=== PATIENT | female | born 1980 | race Caucasian/White ===

== ENCOUNTER → 2016-06-19 | Outpatient (REF) | payer BC ==
[2016-06-19 11:37] LABS: MEAN CORPUSCULAR HEMOGLOBIN 27.6 pg (27.0-33.0); MEAN CORPUSCULAR HGB CONC 32.7 g/dl (32.0-36.5); MEAN CORPUSCULAR VOLUME 84.6 fl (80.0-96.0); RED CELL DISTRIBUTION WIDTH 12.9 % (11.5-14.5); WHITE BLOOD COUNT 5.3 K/mm3 (4.0-10.0)
[2016-06-19 11:40] LABS: CONTROL LINE MONO INT CTR LINE PRESENT
[2016-06-19 12:06] LABS: ALBUMIN 3.7 GM/DL (3.2-5.2); ALT/SGPT 16 U/L (12-78); ANION GAP 6 MEQ/L (8-16); AST/SGOT 9 U/L (15-37); BLOOD UREA NITROGEN 12 MG/DL (7-18); CALCIUM LEVEL 8.5 MG/DL (8.5-10.1); CARBON DIOXIDE LEVEL 27 MEQ/L (21-32); CHLORIDE LEVEL 109 MEQ/L (98-107); CHOLESTEROL LEVEL 176 MG/DL (<200); GLUCOSE, FASTING 93 MG/DL (70-105); POTASSIUM SERUM 4.2 MEQ/L (3.5-5.1); SODIUM LEVEL 142 MEQ/L (136-145); TRIGLYCERIDES LEVEL 74 MG/DL (<150)
[2016-06-19 12:14] LABS: ALBUMIN/GLOBULIN RATIO 1.19 (1.00-1.93); ALKALINE PHOSPHATASE 60 U/L (45-117); BILIRUBIN,TOTAL 0.6 MG/DL (0.2-1.0); CREATININE FOR GFR 0.82 MG/DL (0.55-1.02); FREE T4 1.01 NG/DL (0.76-1.46); GLOMERULAR FILTRATION RATE > 60.0 (>60); TOTAL PROTEIN 6.8 GM/DL (6.4-8.2)
== END ==
LOC: M LABDRAW1 11:08
PROVIDERS: ATTEND Nurse Practitioner Family
DX: R53.83 Other fatigue (principal)

== ENCOUNTER → 2016-10-09 | Outpatient (REF) | payer BC ==
[2016-10-10 07:46] LABS: CONTROL LINE MONO INT CTR LINE PRESENT
== END ==
LOC: M LABDRAW1 15:41
PROVIDERS: ATTEND Nurse Practitioner Family
DX: R53.83 Other fatigue (principal)

== ENCOUNTER → 2017-08-23 | Outpatient (CLI) | payer BC ==
[2017-08-23 08:31] LABS: HEMATOCRIT 38.4 % (36.0-47.0); HEMOGLOBIN 12.9 g/dl (12.0-15.5); MEAN CORPUSCULAR HEMOGLOBIN 27.4 pg (27.0-33.0); MEAN CORPUSCULAR HGB CONC 33.6 g/dl (32.0-36.5); MEAN CORPUSCULAR VOLUME 81.5 fl (80.0-96.0); PLATELET COUNT, AUTOMATED 238 10^3/uL (150-450); RED BLOOD COUNT 4.71 10^6/uL (4.00-5.40); RED CELL DISTRIBUTION WIDTH 13.5 % (11.5-14.5); WHITE BLOOD COUNT 4.8 10^3/uL (4.0-10.0)
[2017-08-23 08:47] LABS: ESTIMATED AVERAGE GLUCOSE 111 MG/DL (60-110); HEMOGLOBIN A1c 5.5 %
[2017-08-23 09:15] LABS: ALBUMIN 3.8 GM/DL (3.2-5.2); ALKALINE PHOSPHATASE 72 U/L (45-117); ALT/SGPT 18 U/L (12-78); ANION GAP 9 MEQ/L (8-16); AST/SGOT 16 U/L (7-37); BILIRUBIN,TOTAL 0.6 MG/DL (0.2-1.0); BLOOD UREA NITROGEN 15 MG/DL (7-18); CALCIUM LEVEL 8.4 MG/DL (8.5-10.1); CARBON DIOXIDE LEVEL 23 MEQ/L (21-32); CHLORIDE LEVEL 111 MEQ/L (98-107); CHOLESTEROL LEVEL 171 MG/DL (<200); CREATININE FOR GFR 0.92 MG/DL (0.55-1.30); GLOMERULAR FILTRATION RATE > 60.0 (>60); GLUCOSE, FASTING 86 MG/DL (70-100); HDL CHOLESTEROL 66 MG/DL (>40); IRON (FE) 68 UG/DL (50-170); LDL CHOLESTEROL 91.8 MG/DL (<100); NON-HDL-C 105 MG/DL; PERCENT SATURATION 16.4 % (13.2-45.0); POTASSIUM SERUM 4.1 MEQ/L (3.5-5.1); SODIUM LEVEL 143 MEQ/L (136-145); THYROID STIMULATING HORMONE 0.996 uIU/ML (0.358-3.740); THYROXINE (T4) 9.9 UG/DL (4.5-12.0); TOTAL IRON BINDING CAPACITY 415 UG/DL (250-450); TOTAL PROTEIN 7.6 GM/DL (6.4-8.2); TRIGLYCERIDES LEVEL 66 MG/DL (<150)
[2017-08-23 10:30] LABS: TOTAL 25(OH) VITAMIN D 28.1 NG/ML (30.0-100.0)
[2017-08-23 10:31] LABS: TOTAL T3 94.3 NG/DL (60.0-181.0); VITAMIN B12 LEVEL 628 PG/ML (247-911)
== END ==
LOC: M LAB 07:50
DX: D64.9 Anemia, unspecified (principal); R53.83 Other fatigue; E03.9 Hypothyroidism, unspecified
CPT/HCPCS: 83550

== ENCOUNTER → 2017-12-30 | Outpatient (REF) | payer BC ==
[2017-12-30 10:17] LABS: APPEARANCE, URINE CLEAR (CLEAR); BACTERIA, URINE AUTO NEGATIVE (NEGATIVE); BILIRUBIN, URINE AUTO NEGATIVE (NEGATIVE); BLOOD, URINE BLOOD NEGATIVE (NEGATIVE); COLOR, URINE COLORLESS (YELLOW); GLUCOSE, URINE (UA) AUTO NEGATIVE (NEGATIVE); KETONE, URINE AUTO NEGATIVE (NEGATIVE); LEUKOCYTE ESTERASE, URINE AUTO NEGATIVE (NEGATIVE); NITRITE, URINE AUTO NEGATIVE (NEGATIVE); PROTEIN, URINE AUTO NEGATIVE (NEGATIVE); RBC, URINE AUTO 0 /HPF (0-3); SPECIFIC GRAVITY URINE AUTO 1.001 (1.002-1.035); SQUAMOUS EPITHELIAL CELL UR AU 0 /HPF (0-6); UROBILINOGEN, URINE AUTO 0.2 mg/dL (0.0-2.0); WBC, URINE AUTO 0 /HPF (0-3)
== END ==
LOC: M LAB REF 10:00
DX: R30.0 Dysuria (principal)
CPT/HCPCS: 81001

== ENCOUNTER → 2019-05-05 | Outpatient (CLI) | payer BC ==
[~2019-05-05] MED LIST: AMOX875T2 PO; AUGM875T28 PO; DIFL150T PO; OSEL75CA PO
[2019-05-05 10:29] LABS: HEMOGLOBIN 13.4 g/dl (12.0-15.5); MEAN CORPUSCULAR HEMOGLOBIN 28.5 pg (27.0-33.0); MEAN CORPUSCULAR HGB CONC 33.5 g/dl (32.0-36.5); MEAN CORPUSCULAR VOLUME 85.1 fl (80.0-96.0); PLATELET COUNT, AUTOMATED 245 10^3/uL (150-450); WHITE BLOOD COUNT 6.1 10^3/uL (4.0-10.0)
[2019-05-05 10:56] LABS: ALBUMIN 4.2 GM/DL (3.2-5.2); ALT/SGPT 23 U/L (12-78); BILIRUBIN,TOTAL 0.7 MG/DL (0.2-1.0); BLOOD UREA NITROGEN 15 MG/DL (7-18); CALCIUM LEVEL 8.8 MG/DL (8.5-10.1); CARBON DIOXIDE LEVEL 26 MEQ/L (21-32); CHLORIDE LEVEL 108 MEQ/L (98-107); CHOLESTEROL LEVEL 205 MG/DL (<200); CREATININE FOR GFR 0.91 MG/DL (0.55-1.30); GLOMERULAR FILTRATION RATE > 60.0 (>60); GLUCOSE, FASTING 79 MG/DL (70-100); HDL CHOLESTEROL 82 MG/DL (>40); LDL CHOLESTEROL 113 MG/DL (<100); NON-HDL-C 123 MG/DL; RHEUMATOID FACTOR QUANT < 10.0 IU/ML (<15.0); SODIUM LEVEL 140 MEQ/L (136-145); THYROID STIMULATING HORMONE 0.986 uIU/ML (0.358-3.740); TOTAL PROTEIN 7.9 GM/DL (6.4-8.2); TRIGLYCERIDES LEVEL 50 MG/DL (<150); URIC ACID 3.9 MG/DL (2.6-6.0)
[2019-05-05 11:18] LABS: HEMOGLOBIN A1c 5.8 %
[2019-05-05 11:20] LABS: ERYTHROCYTE SEDIMENTATION RATE 13 mm/hr (0-20)
[2019-05-05 11:45] LABS: TOTAL 25(OH) VITAMIN D 47.3 NG/ML (30.0-100.0)
[2019-05-07 00:07] LABS: Lyme Disease IgG/IgM Antibodie <0.91 ISR (0.00-0.90); Lyme Disease IgM Ab Quantitati <0.80 index (0.00-0.79)
== END ==
LOC: M LAB 09:13
PROVIDERS: ATTEND Family Medicine
DX: R53.83 Other fatigue (principal); D64.9 Anemia, unspecified; E03.9 Hypothyroidism, unspecified; M06.9 Rheumatoid arthritis, unspecified

== ENCOUNTER → 2020-03-09 | Outpatient (CLI) | payer SELFPAY | LOC: M LABSMTC 11:46 | PROVIDERS: ATTEND Pediatrics | DX: Z20.822 Contact with and (suspected) exposure to COVID-19 (principal) ==

== ENCOUNTER 2020-12-30 23:20 | Emergency (ER) | payer BC, SELFPAY ==
[~2020-12-30] VITALS: Ht 182.9 cm; Wt 72.7 kg
[2020-12-30] MEDS ORDERED: KLON0.5T PO (23:27)
--- OUTSIDE RECORDS SUMMARY | 2020-12-30 23:28 | CCD ---
Author Author [facility] Organization [facility] Address Unknown Phone Unavailable Care Team Providers Care Boat Assembler Name Role Phone Mestad, E Anna Marie Unavailable Unavailable Mestad, E Anna Marie Unavailable Unavailable Mestad, E Anna Marie Unavailable Unavailable Mestad, E Anna Marie Unavailable Unavailable Mestad, E Anna Marie Unavailable Unavailable Mestad, E Anna Marie Unavailable Unavailable Mestad, E Anna Marie Unavailable Unavailable Mestad, E Anna Marie Unavailable Unavailable Mestad, E Anna Marie Unavailable Unavailable Mestad, E Anna Marie Unavailable Unavailable Mestad, E Anna Marie Unavailable Unavailable Mestad, E Anna Marie Unavailable Unavailable Mestad, E Anna Marie Unavailable Unavailable Mestad, E Anna Marie Unavailable Unavailable Mestad, E Anna Marie Unavailable Unavailable Mestad, E Anna Marie Unavailable Unavailable Mestad, E Anna Marie Unavailable Unavailable Mestad, E Anna Marie Unavailable Unavailable Mestad, E Anna Marie Unavailable Unavailable Mestad, E Anna Marie Unavailable Unavailable Mestad, E Anna Marie Unavailable Unavailable Mestad, E Anna Marie Unavailable Unavailable Mestad, E Anna Marie Unavailable Unavailable Mestad, E Anna Marie Unavailable Unavailable Mestad, E Anna Marie Unavailable Unavailable Mestad, E Anna Marie Unavailable Unavailable Mestad, E Anna Marie Unavailable Unavailable Mestad, E Anna Marie Unavailable Unavailable OSIRIS FRAZIER PA Unavailable Unavailable KARINOSIRIS QUINTEROS PA Unavailable Unavailable KARINOSIRIS QUINTEROS PA Unavailable Unavailable KARINOSIRIS QUINTEROS PA Unavailable Unavailable OSIRIS FRAZIER PA Unavailable Unavailable KARINOSIRIS QUINTEROS PA Unavailable Unavailable KARINOSIRIS QUINTEROS PA Unavailable Unavailable KARINOSIRIS QUINTEROS PA Unavailable Unavailable KARINOSIRIS QUINTEROS PA Unavailable Unavailable KARIN, OSIRIS PA Unavailable Unavailable KARIN, OSIRIS PA Unavailable Unavailable KARIN, OSIRIS PA Unavailable Unavailable KARIN, OSIRIS PA Unavailable Unavailable KARIN, OSIRIS PA Unavailable Unavailable KARIN, OSIRIS PA Unavailable Unavailable KARIN, OSIRIS PA Unavailable Unavailable KARIN, OSIRIS PA Unavailable Unavailable KARIN, OSIRIS PA Unavailable Unavailable KARIN, OSIRIS PA Unavailable Unavailable KARIN, OSIRIS PA Unavailable Unavailable KARIN, OSIRIS PA Unavailable Unavailable KARIN, OSIRIS PA Unavailable Unavailable KARIN, OSIRIS PA Unavailable Unavailable KARIN, OSIRIS PA Unavailable Unavailable KARIN, OSIRIS PA Unavailable Unavailable KARIN, OSIRIS PA Unavailable Unavailable KARIN, OSIRIS PA Unavailable Unavailable KARIN, OSIRIS PA Unavailable Unavailable KARIN, OSIRIS PA Unavailable Unavailable KARIN, OSIRIS PA Unavailable Unavailable KARIN, OSIRIS PA Unavailable Unavailable KARIN, OSIRIS PA Unavailable Unavailable KARIN, OSIRIS PA Unavailable Unavailable KARIN, OSIRIS PA Unavailable Unavailable KARIN, OSIRIS PA Unavailable Unavailable KARIN, OSIRIS PA Unavailable Unavailable Re-disclosure Warning The records that you are about to access may contain information from federally-assisted alcohol or drug abuse programs. If such information is present, then the following federally mandated warning applies: This information has been disclosed to you from records protected by federal confidentiality rules (42 CFR part 2). The federal rules prohibit you from making any further disclosure of this information unless further disclosure is expressly permitted by the written consent of the person to whom it pertains or as otherwise permitted by 42 CFR part 2. A general authorization for the release of medical or other information is NOT sufficient for this purpose. The Federal rules restrict any use of the information to criminally investigate or prosecute any alcohol or drug abuse patient.The records that you are about to access may contain highly sensitive health information, the redisclosure of which is protected by Article 27-F of the [facility] Public Health law. If you continue you may have access to information: Regarding HIV / AIDS; Provided by facilities licensed or operated by the [facility] Office of Mental Health; or Provided by the [facility] Office for People With Developmental Disabilities. If such information is present, then the following [facility] mandated warning applies: This information has been disclosed to you from confidential records which are protected by state law. State law prohibits you from making any further disclosure of this information without the specific written consent of the person to whom it pertains, or as otherwise permitted by law. Any unauthorized further disclosure in violation of state law may result in a fine or chcf sentence or both. A general authorization for the release of medical or other information is NOT sufficient authorization for further disc losure. Allergies and Adverse Reactions Type Description Substance Reaction Status Data Source(s ) Propensity to adverse reactions NO KNOWN ALLERGIES NO KNOWN ALLERGIES [facility] Encounters Encounter Providers Location Date Indications Data Source(s ) Outpatient Attender: Anna Marie CarpenterdAdmitter: Anna Marie Liebermananne-marie [id number] 07/26/2020 12:00:00 AM EDT - 07/26/2020 12:16:26 PM EDT Encounter for gynecological examination (general) (routine) without abnormal findings [facility] Encounter for gynecological examination (general) (routine) without abnormal findings Outpatient Attender: Anna Marie Gayle 07/19/2020 12:00:00 AM E DT [facility] Outpatient Attender: OSIRIS gray 03/08/2020 01:30:00 PM EST [facility] ([facility], [facility]) Immunizations Vaccine Date Status Description Data Source(s) COVID-19 VACCINE Moderna 11/04/2020 12:00:00 AM EDT completed [facility] Vaccine Series Complete: YESThis Data wa s Submitted to [facility] Via [employer]. COVID-19 VACCINE Moderna 10/06/2020 12:00:00 AM EDT completed [facility] Vaccine Series Complete: NOThis Data was Submitted to [facility] Via [employer]. INFLUENZA VIRUS VACCINE QUADRIVAL [id number](6 MOS AND UP)/PF 12/18/2019 12:00:00 AM EDT completed [facility] Medications Medication Brand Name Start Date Product Form Dose Route Admi nistrative Instructions Pharmacy Instructions Status Indications Reaction Description Data Source(s) 1 mg 11/28/2020 12:00:00 AM EDT tablet 90 TAKE ONE TABLET BY MOUTH THREE TIMES A DAY MAXIMUM DAILY DOSE = 3 TAKE ONE TABLET BY MOUTH THREE TIMES A D AY MAXIMUM DAILY DOSE = 3 SOLD: 12/02/2020 [facility] 25 mg 09/30/2020 12:00:00 AM EDT suppository 24 INSERT ONE SUPPOSITORY RECTALLY TWICE A DAY NEEDED INSERT ONE SUPPOSITORY RECTALLY TWICE A DAY NEEDED SOLD: 09/30/2020 [facility] 1 mg 09/30/2020 12:00:00 AM EDT tablet 90 TAKE ONE TABLET BY MOUTH THREE TIMES A DAY MAXIMUM DAILY DOSE = 3 TAKE ONE TABLET BY MOUTH THREE TIMES A D AY MAXIMUM DAILY DOSE = 3 SOLD: 09/30/2020 [facility] 1 mg 08/16/2020 12:00:00 AM EDT tablet 90 TAKE ONE TABLET BY MOUTH THREE TIMES A DAY MAXIMUM DAILY DOSE = 3 TAKE ONE TABLET BY MOUTH THREE TIMES A D AY MAXIMUM DAILY DOSE = 3 SOLD: 08/25/2020 [facility] 1 mg 07/05/2020 12:00:00 AM EDT tablet 90 TAKE ONE TABLET BY MOUTH THREE TIMES A DAY MAXIMUM DAILY DOSE = 3 TAKE ONE TABLET BY MOUTH THREE TIMES A D AY MAXIMUM DAILY DOSE = 3 SOLD: 07/06/2020 [facility] 150 mg 05/18/2020 12:00:00 AM EDT tablet 1 TAKE 1 TABLET BY MOUTH ONCE TAKE 1 TABLET BY MOUTH ONCE SOLD: 05/18/2020 [facility] 25 mg 05/17/2020 12:00:00 AM EDT suppository 12 INSERT ONE SUPPOSITORY RECTALLY TWICE A DAY NEEDED INSERT ONE SUPPOSITORY RECTALLY TWICE A DAY NEEDED SOLD: 05/18/2020 [facility] 150 mg 05/16/2020 12:00:00 AM EDT tablet 1 TAKE 1 TABLET BY MOUTH ONCE TAKE 1 TABLET BY MOUTH ONCE SOLD: 05/16/2020 [facility] Sulfamethoxazole 800 MG / Trimethoprim 160 MG Oral Tab let 800-160 mg SULFAMETHOXAZOLE/TRIMETHOPRIM 05/15/2020 12:00:00 AM EST tablet 14 TAKE ONE TABLET BY MOUTH TWICE A DAY FOR 7 DAYS TAKE ONE TABLET BY MOUTH TWICE A DAY FOR 7 DAYS SOLD: 05/15/2020 [facility] 0.4 % (w/w) 05/14/2020 12:00:00 AM EST ointment 30 APPLY TWO TIMES A DAY DIRECTED APPLY TWO TIMES A DAY DIRECTED SOLD: 05/14/2020 [facility] 100,000-0.1 unit/g-% 05/10/2020 12:00:00 AM EST cream 30 APPLY TO AFFECTED AREA(S) TWO TIMES A DAY SPARINGLY APPLY TO AFFECTED AREA(S) TWO TIMES A DA Y SPARINGLY SOLD: 05/10/2020 [facility] 0.5 mg 05/03/2020 12:00:00 AM EST tablet 90 TAKE ONE TABLET BY MOUTH THREE TIMES A DAY MAXIMUM DAILY DOSE = 3 TAKE ONE TABLET BY MOUTH THREE TIMES A D AY MAXIMUM DAILY DOSE = 3 SOLD: 05/08/2020 [facility] 150 mg 04/01/2020 12:00:00 AM EST tablet 2 TAKE ONE TABLET BY MOUTH TODAY MAY REPEAT IN 3 DAYS IF NEEDED TAKE ONE TABLET BY MOUTH TODAY MAY REPEA T IN 3 DAYS IF NEEDED SOLD: 04/01/2020 [facility] 250 mg 04/01/2020 12:00:00 AM EST tablet 6 TAKE TWO TABLETS BY MOUTH AT ONCE ON THE FIRST DAY THEN TAKE ONE DAILY THEREAFTER TAKE TWO TABLETS BY MOUTH AT ONCE ON THE FIRST DAY THEN TAKE ONE DAILY THEREAFTER SOLD: 04/01/2020 [facility] benzonatate 100 MG Oral Capsule BENZONATATE 03/29/2020 12:00:00 AM EST capsule 45 TAKE ONE CAPSULE BY MOUTH EVERY 8 HOURS NEEDED FOR COUGH TAKE ONE CAPSULE BY MOUTH EVERY 8 HOURS NEEDED FOR COUGH SOLD: 03/29/2020 [facility] 0.5 mg 03/22/2020 12:00:00 AM EST tablet 90 TAKE ONE TABLET BY MOUTH THREE TIMES A DAY MAXIMUM DAILY DOSE = 3 TAKE ONE TABLET BY MOUTH THREE TIMES A D AY MAXIMUM DAILY DOSE = 3 SOLD: 03/22/2020 [facility] 90 mcg/actuation 03/19/2020 12:00:00 AM EST HFA aerosol inha ler 18 INHALE 1- 2 PUFFS BY MOUTH EVERY 4 HOURS NEEDED INHALE 1-2 PUFFS BY MOUTH EVERY 4 HOURS NEEDED SOLD: 03/19/2020 [facility] 10 mg 03/19/2020 12:00:00 AM EST tablet 30 TAKE DIRECTED TAKE DIRECTED SOLD: 03/19/2020 [facility] 250 mg 03/19/2020 12:00:00 AM EST tablet 6 TAKE TWO TABLETS BY MOUTH AT ONCE ON THE FIRST DAY THEN TAKE ONE DAILY THEREAFTER TAKE TWO TABLETS BY MOUTH AT ONCE ON THE FIRST DAY THEN TAKE ONE DAILY THEREAFTER SOLD: 03/19/2020 [facility] 0.5 mg 01/26/2020 12:00:00 AM EST tablet 90 TAKE ONE TABLET BY MOUTH THREE TIMES A DAY MAXIMUM DAILY DOSE = 3 TAKE ONE TABLET BY MOUTH THREE TIMES A D AY MAXIMUM DAILY DOSE = 3 SOLD: 01/27/2020 [facility] 150 mg 01/20/2020 12:00:00 AM EST tablet 1 TAKE ONE TABLET BY MOUTH TIMES 1 DOSE TAKE ONE TABLET BY MOUTH TIMES 1 DOSE SOLD: 01/20/2020 [facility] Sulfamethoxazole 800 MG / Trimethoprim 160 MG Oral Tab let 800-160 mg SULFAMETHOXAZOLE/TRIMETHOPRIM 01/20/2020 12:00:00 AM EST tablet 14 TAKE ONE TABLET BY MOUTH TWICE A DAY FOR 7 DAYS TAKE ONE TABLET BY MOUTH TWICE A DAY FOR 7 DAYS SOLD: 01/20/2020 [facility] 0.5 mg 12/16/2019 12:00:00 AM EDT tablet 90 TAKE ONE TABLET BY MOUTH THREE TIMES A DAY MAXIMUM DAILY DOSE = 3 TABLETS TAKE ONE TABLET BY MOUTH THREE TIMES A DAY MAXIMUM DAILY DOSE = 3 TABLETS SOLD: 12/17/2019 [facility] 150 mg 10/19/2019 12:00:00 AM EDT tablet 1 TAKE ONE TABLET BY MOUTH FOR A SINGLE DOSE TAKE ONE TABLET BY MOUTH FOR A SINGLE DOSE SOLD: 09/26/2020 [facility] Sertraline 50 MG Oral Tablet sertraline (ZOLOFT) 50 MG tablet sertraline (ZOLOFT) 50 MG tablet 12/07/2015 12:00:00 AM EDT [facility] Alprazolam 0.5 MG Oral Tablet alprazolam (XANAX) 0.5 M G tablet alprazolam (XANAX) 0.5 MG tablet 11/04/2015 12:00:00 AM EDT [facility] Insurance Providers Payer name Policy type / Coverage type Policy ID Covered democrat ID Covered democrat's relationship to kwok Policy Kwok Plan Information EXCELLUS C [id number] Spouse [id number] BLUE CROSS O [id number] SP [id number] EXCELLUS C [id number] Spouse [id number] EXCELLUS C [id number] Spouse [id number] EXCELLUS C [id number] Spouse [id number] EXCELLUS H [id number] [id number] Blue Cross Blue Shield P [id number] SELF [id number] Blue Cross Blue Shield P [id number] SELF [id number] Blue Cross Blue Shield P [id number] SPOUSE [id number] EXCELLUS BCBS B [id number] P [id number] [place]/307 [id number] UNITED HEALTHCARE O [id number] P [id number] [place]/307 [id number] SELF PAY UNAVAILABLE SP UNAVAILA BLE [place]/307 [id number] BLUE CROSS O [id number] SP [id number] BLUE CROSS O [id number] SP [id number] [place]/307 [id number] [facility] CHOICE PLUS O [id number] SELF PAY ONLY [id number] SP [id number] BCBS [place] O [id number] U [id number] [place]/307 [id number] SP [id number] [facility] [id number] Problems, Conditions, and Diagnoses Code Display Name Description Problem Type Effective Dates Data Source(s) N92.6 Irregular menstruation, unspecified Irregular me nstruation, unspecified Diagnosis 07/26/2020 11:34:18 AM [facility] R87.610 Atypical squamous cells of u ndetermined significance on cytologic smear of cervix (ASC-US) Atypical squamous cells of undetermined significance on cytologic smear of cervix (ASC-US) Diagnosis 07/26/2020 11:34:18 AM [facility] Z01.419 Encounter for gynecological examination (general) (routine) without abnormal findings Encounter for gynecological examination (general) (routine) without abnormal findings Diagnosis 07/26/2020 11:34:18 AM [facility] Surgeries/Procedures No Information Results ID Date Data Source [id number] 11/16/2020 12:00:00 AM EDT [facility] Name Value Range Interpretation Code Description Data Dotty rce(s) Supporting Document(s) SARS-CoV2 Rapid Antigen Negative [facility] This lab was ordered by [facility] and reported by [facility]. ID Date Data Source [id number] 07/26/2020 03:58:[address] [facility] Name Value Range Interpretation Code Description Data Dotty rce(s) Supporting Document(s) Progress Note [facility] JIEBYa4mDhHVTfWo10/PSWewRBAaf2RkHGuoEGi0RXgtSTYmY7NaMYS6bI6cNVJ8MFzPHbDeLnZiFPK7 lbm [file] kAA1fhahyu12DovXFXiX6QGbliQHoTd/UgjKnX1DWq9gCjsF31rncU0JfC/set and exhibit designer+V1yAzjtvEWxQRxKrUL [file] Ana Laura+EPk9dxbt1yagyf8XFLxBnoLT2Bagcvn+JejHf0XVQylzpYk5Y3SUudWo2uHtou0w0p+M29lRcHaV [file] AgICAgICAgICAgICAgICAgICAgICAgICAgICAgICAgICAgICAgICAgICAgICAgICAgICAgICAgICAgIC AgICAgICAgICAgICAgICAgICAgICAgICANCiAgICAgICAgICAgICAgICAgICAgICAgICAgICAgICAgIC AgICAgICAgICAgICAgICAgICAgICAgICAgICAgICAg ICAgICAgICAgICAgICAgICAgICAgICAgICAgICAgICAgICANCiAgICAgICAgICAgICAgICAgICAgICAg ICAgICAgICAgICAgICAgICAgICAgICAgICAgICAgICAgICAgICAgICAgICAgICAgICAgICAgICAgICAg ICAgICAgICAgICAgICAgICANCiAgICAgICAgICAgIC AgICAgICAgICAgICAgICAgICAgICAgICAgICAgICAgICAgICAgICAgICAgICAgICAgICAgICAgICAgIC AgICAgICAgICAgICAgICAgICAgICAgICAgICANCiAgICAgICAgICAgICAgICAgICAgICAgICAgICAgIC AgICAgICAgICAgICAgICAgICAgICAgICAgICAgICAg ICAgICAgICAgICAgICAgICAgICAgICAgICAgICAgICAgICAgICANCiAgICAgICAgICAgICAgICAgICAg ICAgICAgICAgICAgICAgICAgICAgICAgICAgICAgICAgICAgICAgICAgICAgICAgICAgICAgICAgICAg ICAgICAgICAgICAgICAgICAgICANCiAgICAgICAgIC AgICAgICAgICAgICAgICAgICAgICAgICAgICAgICAgICAgICAgICAgICAgICAgICAgICAgICAgICAgIC AgICAgICAgICAgICAgICAgICAgICAgICAgICAgICANCiAgICAgICAgICAgICAgICAgICAgICAgICAgIC AgICAgICAgICAgICAgICAgICAgICAgICAgICAgICAg ICAgICAgICAgICAgICAgICAgICAgICAgICAgICAgICAgICAgICAgICANCiAgICAgICAgICAgICAgICAg ICAgICAgICAgICAgICAgICAgICAgICAgICAgICAgICAgICAgICAgICAgICAgICAgICAgICAgICAgICAg ICAgICAgICAgICAgICAgICAgICAgICANCiAgICAgIC AgICAgICAgICAgICAgICAgICAgICAgICAgICAgICAgICAgICAgICAgICAgICAgICAgICAgICAgICAgIC AgICAgICAgICAgICAgICAgICAgICAgICAgICAgICAgICANCjw/zHCfN7wolGEfbyH7Y6qmEo1NJv6KUN 7hh8DoTDQpLYgisrOoRkjNZuZjQYOjCdwKPds1LGyq DT1DiVOyF1KuL4WtHEfpDQ6LJPZhJLEicWDpUDFhZEGoWeS5TLNvNVuzUN8ByRXtTEeqYJNqVKYsOeBb AVPlYHJdFFHnMRYiYEIYMT5WFqJhW9CvrU24RJJPKw4+CBiqunYfMciSWeF8OHQrc2ZfVYy2VX7RXPWo Mpevo3VvBfrzTYSYGTvjEI3MUEP5FRO6EOFmWl7CRS YuP061duKkFQ0IAy4WWrHyKU1zub5LTswtJFBwDvwZSei0GYvmSR8IbDGyHFlOhn6aawSkioIYm4Ywhn HeaDHTQX8oLNLNXG0fy5XvECvwQNWgQTDrBP2fBN2bACNmMHVvBbEnXXXXNT5UDJVwSWFlyXKdIRUgZG ZCFC0CWVuiJSB2JDKshrPwbYRxOHnuEE2HKUOaygRu MjggMCBSDQo+Uy6OHO7xe2XzBIomUIQdWZ2plc8JBMxDXvWvP7A1eXGvW4M8DPddWj5HRUWmJUIcBwKb ANMGHPshGC5NAT0bujG1HL1VhHXrRVPnJNGefHVaKJh3D84maXScFThvPP4LLEU+Eliezer+Dx6KFLQuXPPq GOTwWrPtIHUVIdEsZ8WtW9BKd5QvV8YpOJ61bLrpeg HnIGlyPH9MQY0dKYNtDURKDU0FwHBfvW6liiUbRKBwMUZESlGcY66inIZlDRItUSX9UBHjMy9AFDNaK3 GdycRggDognhPoRCEiRIJOZF6JPSsluqDcvHEziLcjCX41hWkaYZ5SSq4ZJoGcXP8rtb0AlCWdYc0XNJ LbSX9BXQEsTOXsDXCdWPO2HTIiZxMoXEmdUFFtKIDs FJI7AKExZFKvZU1XFjVoIACoLEQ2UVFoNIVuCXUbkq8PWSJiICC1HFVbCwMpBMEuACOwPRcrIMDtWQPs GOR3MBVaLVRsNT1PIiYnGFYjCKX5HvQaQMJwSHKcie5MOKKoPUFbAjHbCTUsCYOlPFTxHJfwGMYcFSQ8 UbA4EXOpXYWkWJ5TYkArUPBnKWD0ZlvrXFSwFAJasb 3XTMKpTYXqKGUfBINbRLQjKERiZSffDLTgXKT8DUR2OJOqMLElDU5ELlIoGSLiFFW9UiOwRDXlXPNbvd 4QHWNeWMPyBGjzUNRwIIUqDJSsNUhkPRQrGMYbJdo2USOiITVmAM6LIaIvXEXpHMM3WQAqJQNsKVQtje 0PDVYzYUEyNiP4JVKlXRQcELGxKYhgAYHqBEC1LAZ3 PCOhATXiOC0BJyHjFLKzUHCmOebaBWOyVIMqnn5OTFTsVEStCOOdQjToFADhVATaUZtcIYRjYCBxEdD6 WOEoRLViAW1JXpUqUTAoWXZsUoIpFCBnDHDduz8SCGRqGGA0DERrCwJoJTKvGAUaKHtiINKbCDSuVbGq BJUyUXIeEG0RHdHiRRTeKFBhFlzyNMNhEIDbey1DUA ErIOB6MpAiQbAvYJNyDCQeZXccPYKkGEImRGCqQFFuURJjBV5GBaReINCyDNS5YykeXOZcXDOewp8TZF ZzSFD9SHE8TnNkMBAjFHUdJMzfOISqZQS2YMHdASQvXMGwRF5VRzIdHOTmGHG6GyPuKVTdDDEwap2PPH HzZPT7IAy6MkTpQOYwXPXsJDb3wgPrrTKyWTw0XQ6Z I3NsnkXjTtSCQp8Jl869OPJrMSPcDj1ZX0aoWg6uRVIiOVGUOs5NZXz2R3R8LGTpJCZ0Jwf1KkXhSPD4 XXA5RoE5EjO1JYYeZCZ+SAyxHbvfKpN9YKBxRhAjJTC3ZHDsWNu0Sne5WbabZsUbYP1xMNXYOf9+DQpz pHWkjTsxAVKQOlP4SHL0ARbzVWIVPw2J ID Date Data Source [id number] 08/02/2020 05:49:[address] [facility] CYTOPATHOLOGY REPORT See Addendum BelowN anu: TARIK MOYALACIE: [id number] Number: [id number] Date: 07/26/2020 14:16Received Date: 07/27/2020 09:29Physician(s): ANNA MARIE GAYLE MD MESTAD, RENEE E, MD Specimen(s) ReceivedA: ThinPrep Pap Test with Image Review with full manual rescreen. HR HPVcotesting and reflex to 16/18 HPV genotyping regardless of Pap results ifHPV is positive.Date of Last Menstrual Period: 07/05/2020Menstrual History:CyclingPrior Pap Diagnosis History:Previous abnormal Pap smear: 07/2018 ASCUSClinical Findings:Source: Cervical /yaqmnkhizaxoF82.419 ICD Code, Encounter for routine gynecological examination with Papsmear of cervixICD Code: R87.610 ASCUS ON CERVICAL CYTO W/NEG HRHPVADEQUACY OF THE SPECIMEN:Satisfactory for evaluation. 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 Acuteinflammation Reviewing Cytotech: TANIYA Rubio (ASCP)Electronically Signed By JORGE Colindres(ASCP) ([facility]) at 117:49:57 Procedures/AddendaHR HPV Aptima Addendum Date Complete: 07/28/2020 Date Reported: 07/28/2020 14:17 HPV High Risk E6/E7 mRNASpecimen DescriptionThin prep vial cervix07/27/2020 09:29Special RequestNone07/27/2020 09:29Culture/ResultsNEGATIVE for HPV high-risk types by junior technical writer-mediated amplification.Thistest detects HPV types 16,18,31,33,35,39,45,51,52,56,58,59,66, and 68withoutdifferentiation. LIMITATIONS Detection of high-risk HPV mRNA isdependenton the number of copies present in the specimen and may be affected byspecimenadequacy, stage of infection, and presence of interfering substances.Prevalance may also affect performance as positive predictive valuesdecrease inlow prevalance populations and when testing individuals with no risk ofinfection. The performance of this assay has not been evaluated in HPVvaccinated individuals. Cross- reactivity with low-risk HPV types 26, 67,70,and 82 may occur07/28/2020 14:17Report StatusFinal 14:17 Procedure Electronically Signed System Interface 07/28/2020 14:17 Name Value Range Interpretation Code Description Data Dotty rce(s) Supporting Document(s) ID Date Data Source [id number] 03/09/2020 12:00:00 PM EST [facility] Name Value Range Interpretation Code Description Data Dotty rce(s) Supporting Document(s) SARS coronavirus 2 RNA Not Detected [facility] This lab was ordered by [facility] and reported by [facility]. Procedure Social History Code Duration Value Status Description Data Source(s ) Alcohol intake 07/26/2020 12:00:00 AM EDT Current non-d arsenio of alcohol (finding) completed Current non-drinker of alcohol (finding) [facility] Tobacco use and exposure 07/26/2020 12:00:00 AM EDT Never used co mpleted Never used [facility] Smoking 07/26/2020 12:00:00 AM EDT Never smoker completed Never s moker [facility] Vital Signs ID Date Data Source UNK Name Value Range Interpretation Code Description Data Source(s) Systolic blood pressure 110 mm[Hg] 110 mm[Hg] [facility] Diastolic blood pressure 70 mm[Hg] 70 mm[Hg] [facility] Heart rate 78 /min 78 /[facility], [facility]) Respiratory rate 16 /min 16 /min [facility] ( [facility]) Oxygen saturation in Arterial blood by Pulse oximetry 99 % 99 % [facility] ([facility]) Body temperature 98.9 [degF] 98.9 [degF] [facility] ([facility]) Body weight 160.00 [lb_av] 160.00 [lb_av] [facility] ([facility]) Body height 72 [in_i] 72 [in_i] [facility] ([facility]) 6'0" Body mass index (BMI) [Ratio] 21.7 kg/m2 21.7 k g/m2 [facility] ([facility]) ID Date Data Source [id number] 08/05/2020 10:20:[address] [facility] Name Value Range Interpretation Code Description Data Source(s) WEIGHT RECORDED [address] [facility] Body height Measured 72 in 72 in [facility] Patient Treatment Plan of Care Planned Activity Planned Date Details Description Data Source (s) Sertraline 50 MG Oral Tablet 12/07/2015 12:00:00 AM [facility] Alprazolam 0.5 MG Oral Tablet 11/04/2015 12:00:00 AM [facility]
[2020-12-31 00:52] LABS: BASO % 0.7 % (0.0-1.0); EOS # 0.1 10^3/uL (0.0-0.5); EOS % 1.3 % (0.0-3.0); HEMATOCRIT 40.2 % (36.0-47.0); HEMOGLOBIN 13.2 g/dl (12.0-15.5); LYMPH # 0.8 10^3/uL (1.5-5.0); LYMPH % 14.5 % (24.0-44.0); MEAN CORPUSCULAR HEMOGLOBIN 28.6 pg (27.0-33.0); MEAN CORPUSCULAR HGB CONC 32.8 g/dl (32.0-36.5); MEAN CORPUSCULAR VOLUME 87.2 fl (80.0-96.0); MONO # 0.4 10^3/uL (0.0-0.8); MONO % 6.5 % (2.0-8.0); NEUTROPHILS # 4.2 10^3/uL (1.5-8.5); NEUTROPHILS % 76.3 % (36.0-66.0); PLATELET COUNT, AUTOMATED 222 10^3/uL (150-450); RED BLOOD COUNT 4.61 10^6/uL (4.00-5.40); WHITE BLOOD COUNT 5.5 10^3/uL (4.0-10.0)
[2020-12-31] MEDS ORDERED: ONDANSETRON 4 MG ORAL DISINTEGRATING TAB PO ONE (01:00)
--- OUTSIDE RECORDS SUMMARY | 2020-12-31 01:12 | CCD ---
Author Author [facility] Organization [facility] Address Unknown Phone Unavailable Care Team Providers Care Clinic Office Coordinator Name Role Phone Mestad, E Anna Marie [...] Unavailable Mestad, E Anna Marie Unavailable Unavailable KARINOSIRIS QUINTEROS PA Unavailable Unavailable KARINOSIRIS QUINTEROS PA Unavailable Unavailable OSIRIS FRAZIER PA Unavailable Unavailable OSIRIS FRAZIER PA Unavailable Unavailable KARINOSIRIS QUINTEROS PA Unavailable Unavailable OSIRIS FRAZIER PA Unavailable Unavailable KARINOSIRIS QUINTEROS PA Unavailable Unavailable KARIN, OSIRIS PA Unavailable Unavailable KARIN, OSIRIS PA Unavailable Unavailable KRAIN, OSIRIS PA Unavailable Unavailable KARIN, OSIRIS PA [...] is protected by Article 27-F of the [facility] Public Health law. If you continue you may have access to information: Regarding HIV / AIDS; Provided by facilities licensed or operated by the [facility] Office of Mental Health; or Provided by the [facility] Office for People With Developmental Disabilities. If such information is present, then the following [facility] mandated warning applies: This information has been [...] law may result in a fine or usp sentence or both. A general authorization for the release of medical or other information is NOT sufficient authorization for further disc losure. Allergies and Adverse Reactions Type Description Substance Reaction Status Data Source(s ) Propensity to adverse reactions NO KNOWN ALLERGIES NO KNOWN ALLERGIES [facility] Encounters Encounter Providers Location Date Indications Data Source(s ) Outpatient Attender: Anna Marie Cabellodmitter: Anna Marie Gayle [id number] 07/26/2020 12:00:00 AM EDT - 07/26/2020 12:16:26 PM EDT Encounter for gynecological examination (general) (routine) without abnormal findings [facility] Encounter for gynecological examination (general) (routine) without abnormal findings Outpatient Attender: Anna Marie Gayle 07/19/2020 12:00:00 AM E DT [facility] Outpatient Attender: OSIRIS Hutson Prima ry 03/08/2020 01:30:00 PM EST [facility] ([facility], [facility]) Immunizations Vaccine Date Status Description Data Source(s) COVID-19 VACCINE Moderna 11/04/2020 12:00:00 AM EDT completed [facility] Vaccine Series Complete: YESThis Data wa s Submitted to [facility] [employer]. COVID-19 VACCINE Moderna 10/06/2020 12:00:00 AM EDT completed [facility] Vaccine Series Complete: NOThis Data was Submitted to [facility] [employer]. INFLUENZA VIRUS VACCINE QUADRIVAL [id number](6 MOS AND UP)/PF 12/18/2019 12:00:00 AM EDT completed [facility] Medications Medication Brand Name Start Date [...] TIMES A DA Y SPARINGLY SOLD: 05/10/2020 [facility] 0.5 mg 05/03/2020 12:00:00 AM EST tablet 90 TAKE ONE TABLET BY MOUTH THREE TIMES A DAY MAXIMUM DAILY DOSE = 3 TAKE ONE TABLET BY MOUTH THREE TIMES A D AY MAXIMUM DAILY DOSE = 3 SOLD: 05/08/2020 [facility] 150 mg 04/01/2020 12:00:00 AM EST tablet 2 TAKE ONE TABLET BY MOUTH TODAY MAY REPEAT IN 3 DAYS IF NEEDED TAKE ONE TABLET BY MOUTH TODAY MAY REPEA T IN 3 DAYS IF NEEDED SOLD: 04/01/2020 [facility] 250 mg 04/01/2020 12:00:00 AM EST tablet 6 TAKE TWO TABLETS BY MOUTH AT ONCE ON THE FIRST DAY THEN TAKE ONE DAILY THEREAFTER TAKE TWO TABLETS BY MOUTH AT ONCE ON THE FIRST DAY THEN TAKE ONE DAILY THEREAFTER SOLD: 04/01/2020 [facility] benzonatate 100 MG Oral Capsule BENZONATATE 03/29/2020 12:00:00 AM EST capsule 45 TAKE ONE CAPSULE BY MOUTH EVERY 8 HOURS NEEDED FOR COUGH TAKE ONE CAPSULE BY MOUTH EVERY 8 HOURS NEEDED FOR COUGH SOLD: 03/29/2020 [facility] 0.5 mg 03/22/2020 12:00:00 AM EST tablet 90 TAKE ONE TABLET BY MOUTH THREE TIMES A DAY MAXIMUM DAILY DOSE = 3 TAKE ONE TABLET BY MOUTH THREE TIMES A D AY MAXIMUM DAILY DOSE = 3 SOLD: 03/22/2020 [facility] 90 mcg/actuation 03/19/2020 12:00:00 AM EST HFA aerosol inha ler 18 INHALE 1- 2 PUFFS BY MOUTH EVERY 4 HOURS NEEDED INHALE 1-2 PUFFS BY MOUTH EVERY 4 HOURS NEEDED SOLD: 03/19/2020 [facility] 10 mg 03/19/2020 12:00:00 AM EST tablet 30 TAKE DIRECTED TAKE DIRECTED SOLD: 03/19/2020 [facility] 250 mg 03/19/2020 12:00:00 AM [...] MG tablet 12/07/2015 12:00:00 AM EDT a [facility] Alprazolam 0.5 MG Oral Tablet alprazolam (XANAX) 0.5 M G tablet alprazolam (XANAX) 0.5 MG tablet 11/04/2015 12:00:00 AM EDT a [facility] Insurance Providers Payer name Policy type / Coverage type Policy ID Covered democrat ID Covered democrat's relationship to kwok Policy Kwok Plan Information EXCELLUS C [id number] Spouse [id number] BLUE CROSS O [id number] SP [id number] EXCELLUS C [id number] Spouse [id number] EXCELLUS C [id number] Spouse [id number] EXCELLUS C [id number] Spouse [id number] EXCELLUS H [id number] Spouse [id number] Blue Cross Blue Shield P [id number] SELF [id number] Blue Cross Blue Shield P [id number] SELF [id number] Blue Cross Blue Shield P [id number] SPOUSE [id number] BLUE CROSS O [id number] SP [id number] BLUE CROSS O [id number] SP [id number] [facility] CHOICE PLUS O [id number] S [id number] [place] O [id number] U [id number] [place] 302/307 [id number] SP [id number] [facility] [id number] [place] 220/720 YND [id number] SP [id number] SELF PAY ONLY [id number] SP [id number] [employer] P[place] 302/307 [id number] HU2 [id number] [employer] [place] 302/307 [id number] [id number] [employer] [place] P[place] 302/307 [id number] [id number] [place] BCBS B [id number] P YND [id number] [employer] P[place] 302/307 [id number] [facility] O [id number] P [id number] SELF PAY UNAVAILABLE SP UNAVAILA BLE Problems, Conditions, and Diagnoses Code Display Name Description Problem Type Effective Dates Data Source(s) N92.6 Irregular menstruation, unspecified Irregular me nstruation, unspecified Diagnosis 07/26/2020 11:34:18 AM [facility] R87.610 Atypical squamous cells of u ndetermined significance on cytologic smear of cervix (ASC-US) Atypical squamous cells of undetermined significance on cytologic smear of cervix (ASC-US) Diagnosis 07/26/2020 11:34:18 AM ED [facility] Z01.419 Encounter for gynecological examination (general) (routine) without abnormal findings Encounter for gynecological examination (general) (routine) without abnormal findings Diagnosis 07/26/2020 11:34:18 AM EDT [facility] Surgeries/Procedures No Information Results ID Date Data Source [id number] 11/16/2020 12:00:00 AM EDT [facility] Name Value Range Interpretation Code Description Data Dotty rce(s) Supporting Document(s) SARS-CoV2 Rapid Antigen Negative [facility] This lab was ordered by [facility] and reported by [facility]. ID Date Data Source [id number] 07/26/2020 03:58:09 PM EDT [facility] Name Value Range Interpretation Code Description Data Dotty rce(s) Supporting Document(s) Progress Note [facility] MZUNXz8lMjLLNqRh98/YQEmnQBGnf5TaAQprWVt0PPsuFFSfI0AkBAE4aW7cFJS5BMrVTtIiWkNfZEN1 lbm [file] iNI8uhfqrg04AbrNYHsM4EPqtoGLpSa/MtlQgS5KSn4hQchY90hgoD2ByM/cmm inspector+P6oNkelfZXeVUyYyUU [file] Ana Laura+SWj9hnlz6walml7YSEyRvbUM8Litdjw+QvySq1NIXhldfQm8W1OBmfGx2zAhhb8r4h+M76tGvRkF [file] AgICAgICAgICAgICAgICAgICAgICAgICAgICAgICAgICAgICAgICAgICAgICAgICAgICAgICAgICAgIC AgICAgICAgICAgICAgICAgICAgICAgICANCiAgICAgICAgICAgICAgICAgICAgICAgICAgICAgICAgIC AgICAgICAgICAgICAgICAgICAgICAgICAgICAgICAg ICAgICAgICAgICAgICAgICAgICAgICAgICAgICAgICAgICANCiAgICAgICAgICAgICAgICAgICAgICAg ICAgICAgICAgICAgICAgICAgICAgICAgICAgICAgICAgICAgICAgICAgICAgICAgICAgICAgICAgICAg ICAgICAgICAgICAgICAgICANCiAgICAgICAgICAgIC AgICAgICAgICAgICAgICAgICAgICAgICAgICAgICAgICAgICAgICAgICAgICAgICAgICAgICAgICAgIC AgICAgICAgICAgICAgICAgICAgICAgICAgICANCiAgICAgICAgICAgICAgICAgICAgICAgICAgICAgIC AgICAgICAgICAgICAgICAgICAgICAgICAgICAgICAg ICAgICAgICAgICAgICAgICAgICAgICAgICAgICAgICAgICAgICANCiAgICAgICAgICAgICAgICAgICAg ICAgICAgICAgICAgICAgICAgICAgICAgICAgICAgICAgICAgICAgICAgICAgICAgICAgICAgICAgICAg ICAgICAgICAgICAgICAgICAgICANCiAgICAgICAgIC AgICAgICAgICAgICAgICAgICAgICAgICAgICAgICAgICAgICAgICAgICAgICAgICAgICAgICAgICAgIC AgICAgICAgICAgICAgICAgICAgICAgICAgICAgICANCiAgICAgICAgICAgICAgICAgICAgICAgICAgIC AgICAgICAgICAgICAgICAgICAgICAgICAgICAgICAg ICAgICAgICAgICAgICAgICAgICAgICAgICAgICAgICAgICAgICAgICANCiAgICAgICAgICAgICAgICAg ICAgICAgICAgICAgICAgICAgICAgICAgICAgICAgICAgICAgICAgICAgICAgICAgICAgICAgICAgICAg ICAgICAgICAgICAgICAgICAgICAgICANCiAgICAgIC AgICAgICAgICAgICAgICAgICAgICAgICAgICAgICAgICAgICAgICAgICAgICAgICAgICAgICAgICAgIC AgICAgICAgICAgICAgICAgICAgICAgICAgICAgICAgICANCjw/sCGlR9efoQIdfkS3B3veGh7OGj3AXT 4mj4VkRCXpGGbxiqIyHohXMbIbDZDbVjxTSwf0LXra UE9GgMTxB2UxV6OiHZozLC5KUBPyTDGxvQInDQWaRYMfWvV2FXUjIGcbEF3QlRItGKgjRHOhWXMjOqDg DRUlSNBrMTDxJXCdKAVMUE3CGaJtO9OimR23JZRYCp7+PXfajvXqQztHShL0DFYbe0WiIVe8WE8MYUHx Njsie5GdNkihJXASBYquXA1MZSY7YXH4VRObJo0PEI DsJ409kfNqII9YUu6SKwZxAQ7qgj0BJrxdJFNdSkdLWnt5KXbzCP8OeDPgYElUws2aopSdcsBQb6Hlpb QbqTWOEI1vWUTUYI3iq8ZlBSewIULiGZFgAF4pLO9qRMUcHQLqSnHvKJWTIN9TCLMfDTXmxNEmCHIqMV USEK1VONoaTHU7ODFrhqTtkFQaOLtfSA9EKWCegcJl MjggMCBSDQo+Gk8QQH5xx5QnVBquBIHsUZ9egj4YSCxDJnUmL3W5wKMkK8D6STgsAy4ADAXjADKtFhCv XCEUEMwlCN9SBF7xfgA2GT2NmYFbLZFmPHHteOZyHXh9G98cpTGgEAbeHV1PIKA+Eliezer+Ol3XROVgHGDe CDTsNsYaBGVXPzBtN1AdH4GDi9FrK6KsUE37lXbakp XhVAjaYF2PAR6cRZPbAJZSQE1SaBYhnV7azbJqECQkBDLUWjQjN16ypFFeFSPyAMG5NMAsJp3THFHqC6 LysqPpzReprdLbZAMkOSGRLH4HNSohujZpdNUrnLmhES02lUvtWH6CEk8EQmBjLG1udj3OjIZhLf5QXG ZcBZ7NZJQpQZJkSPKvTVE2JMSfUsTgTLsyXULaEJNv YEY3JVTyOGSmAD0XLlHcDLUnRLE6YZQjKRReNYMtms7EFKQqBRY5IPUbTsRxDFZvFIBmIDvaPXQzAPXs SQW3YIXfESMmNF8FIjFpXRPzHQS0IrIvFHHaMKGrhv8UCLYhZUJeCyZwUAAdKKMqCKZpCIcmBMEjPFT6 XfA1PBQpIBKeZW4HJkYpHAStQWO7XrurHIXnMHLsin 7UCIExPBZbIAFmSDHkIYAgIHFhLAqaIBOwCRW6ROI7LUGyEIYeNA9MDrRxFETyCPC4KpYuWOXiFDTdst 1FTNWfKDAcOZxlRYTwFDTlTDSvZLjdRYOaQKZkDqa8VJUdEUAqKJ0LMfJdGVTgEIK2ECVfQQRcQLEjgg 4HWLJoTOHlIrI3BHVdDNSgJEPsSDjbKWQlYQF7RRO5 KDEjXSGxXN8EQiItYJHtZGRqAsrfCULfFLNbtz7HQKScTBKkPGFiInDsNMDjQTAjOYqqWMOdMEDwEsU5 CTSuPKSpNR7YCaLoYHJqVSJmPoWxOQDdRFToxh7QBMNaMCC5ZSAiQiCpNOHqWMZhHZnvJUKeILZbKmRo IWXdGZYwIF4EYjHkHQGpHOJoLfdwITCcHKOzpt9BZJ JdVRZ0XoBaYdWtEVPtODWhHZteEJOjOZSrAZRpOHRaPIRvOX0NMyVcLTGhTQW4MnchEFVmYRBeef2PLY SaJZL4OHU6QcNzBPJrOGNeAEgxZPQwJZJ2ICQmYVXxNBLhHR6DQzYhMVItNMV6VsGuVTJpCZPgbl8XJL HhQBU2LWg8OtCxKFTpPVLkBBk2ldHlgCFhEDc9WR9H E4NyqfUgSsVQHe8Vl012PSUsEKMbPk7VT6ogXp7qVLHnERTFTs9EHUm1Y1P4CPBgZSG4Zks9OwRqQAU5 NJZ9YjA0DqC3IUMxDRJ+NGlcHrkeBoV1OGEeVkQuSPY5ABQeAQu5Chi6MsfzTtChCI4fMGZPJw7+DQpz qMIsqYdmHGCBOzJ8HNF8AWdfQZIMPc6F ID Date Data Source [id number] 08/02/2020 05:49:00 PM T [facility] CYTOPATHOLOGY REPORT See Addendum BelowN anu: SUSAN MOYA: [id number] Number: [id number] Date: 07/26/2020 14:16Received Date: 07/27/2020 09:29Physician(s): ANNA MARIE GAYLE MD MESTAD, RENEE E, MD Specimen(s) ReceivedA: ThinPrep Pap Test with Image Review with full manual rescreen. HR HPVcotesting and reflex to 16/18 HPV genotyping regardless of Pap results ifHPV is positive.Date of Last Menstrual Period: 07/05/2020Menstrual History:CyclingPrior Pap Diagnosis History:Previous abnormal Pap smear: 07/2018 ASCUSClinical Findings:Source: Cervical /jvlumitrnyqbS65.419 ICD Code, Encounter for routine gynecological examination with Papsmear of cervixICD Code: R87.610 ASCUS ON CERVICAL CYTO W/NEG HRHPVADEQUACY OF THE SPECIMEN:Satisfactory for evaluation. 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 Acuteinflammation Reviewing Cytotech: Bradley Gee CT (ASCP)Electronically Signed By JORGE Colindres(ASCP) ([facility]) at 117:49:57 Procedures/AddendaHR HPV Aptima Addendum Date Complete: 07/28/2020 Date Reported: 07/28/2020 14:17 HPV High Risk E6/E7 mRNASpecimen DescriptionThin prep vial cervix07/27/2020 09:29Special RequestNone07/27/2020 09:29Culture/ResultsNEGATIVE for HPV high-risk types by counter supply worker-mediated amplification.Thistest detects HPV types 16,18,31,33,35,39,45,51,52,56,58,59,66, and 68withoutdifferentiation. [...] rce(s) Supporting Document(s) ID Date Data Source [id number] 03/09/2020 12:00:00 PM EST [facility] Name Value Range Interpretation Code Description Data Dotty rce(s) Supporting Document(s) SARS coronavirus 2 RNA Not Detected [facility] This lab was ordered by [facility] and reported by [facility]. Procedure Social History Code Duration Value Status Description Data Source(s ) Alcohol intake 07/26/2020 12:00:00 AM EDT Current non-d arsenio of alcohol (finding) completed Current non-drinker of alcohol (finding) [facility] Tobacco use and exposure 07/26/2020 12:00:00 AM EDT Never used co mpleted Never used [facility] Smoking 07/26/2020 12:00:00 AM EDT Never smoker completed Never s [facility] Vital Signs ID Date Data Source UNK Name Value Range Interpretation Code Description Data Source(s) Systolic blood pressure 110 mm[Hg] 110 mm[Hg] [facility] ([facility]) Diastolic blood pressure 70 mm[Hg] 70 mm[Hg] [facility] ([facility]) Heart rate 78 /min 78 /min [facility] ([facility]) Respiratory rate 16 /min 16 /min [facility] ( [facility]) Oxygen saturation in Arterial blood by Pulse oximetry 99 % 99 % [facility] ([facility]) Body temperature 98.9 [degF] 98.9 [degF] [facility] ([facility]) Body weight 160.00 [lb_av] 160.00 [facility]_av[facility] Body height 72 [in_i] 72 [in_i] [facility] ([facility]) 6'0" Body mass index (BMI) [Ratio] 21.7 kg/m2 21.7 k g/m2 [facility] ([facility]) ID Date Data Source [id number] 08/05/2020 10:20:55 AM [facility] Name Value Range Interpretation Code Description Data Source(s) WEIGHT RECORDED 162 lb 162 lb [facility] Body height Measured 72 in 72 in [facility] Patient Treatment Plan of Care Planned Activity Planned Date Details Description Data Source (s) Sertraline 50 MG Oral Tablet 12/07/2015 12:00:00 AM [facility] Alprazolam 0.5 MG Oral Tablet 11/04/2015 12:00:00 AM [facility]
[2020-12-31 01:15] LABS: ALBUMIN 3.9 GM/DL (3.2-5.2); ALT/SGPT 21 U/L (12-78); BILIRUBIN,DIRECT < 0.1 MG/DL (0.0-0.2); BILIRUBIN,TOTAL 0.4 MG/DL (0.2-1.0); BLOOD UREA NITROGEN 12 MG/DL (7-18); CALCIUM LEVEL 8.7 MG/DL (8.5-10.1); CARBON DIOXIDE LEVEL 24 MEQ/L (21-32); CHLORIDE LEVEL 108 MEQ/L (98-107); CREATININE FOR GFR 0.85 MG/DL (0.55-1.30); GLOMERULAR FILTRATION RATE > 60.0 (>60); GLUCOSE, FASTING 139 MG/DL (70-100); POTASSIUM SERUM 3.5 MEQ/L (3.5-5.1); SODIUM LEVEL 140 MEQ/L (136-145); TOTAL PROTEIN 7.8 GM/DL (6.4-8.2)
[2020-12-31] MEDS ORDERED: ONDANSETRON 4MG/2ML VIAL IV ONE (01:20)
[2020-12-31] MEDS ORDERED: NS 1,000 ML IV ONE ×2 (01:20→02:00)
[2020-12-31 01:22] LABS: AMPHETAMINES LEVEL URINE NEGATIVE (NEGATIVE); BARBITURATES URINE NEGATIVE (NEGATIVE); BENZODIAZEPINES URINE NEGATIVE (NEGATIVE); CANNABINOIDS URINE NEGATIVE (NEGATIVE); COCAINE METABOLITE URINE NEGATIVE (NEGATIVE); METHADONE URINE NEGATIVE (NEGATIVE); OPIATES URINE NEGATIVE (NEGATIVE); PHENCYCLIDINE URINE NEGATIVE (NEGATIVE)
[2020-12-31 01:39] LABS: ACETAMINOPHEN LEVEL < 2.0 UG/ML (10.0-30.0); CPK CREATINE PHOSPHOKINASE 91 U/L (26-192); ETHYL ALCOHOL (ETHANOL) 0.136 % (0.000-0.010); SALICYLATE LEVEL < 1.7 MG/DL (5.0-30.0)
--- NOTE | 2020-12-31 02:00 | REPVR ---
PROCEDURE INFORMATION: Exam: CT Cervical Spine Without Contrast Exam date and time: 12/31/2020 1:22 AM Age: 40 years old Clinical indication: Injury or trauma; Fall; Blunt trauma; Additional info: Fall, syncope TECHNIQUE: Imaging protocol: Computed tomography images of the cervical spine without contrast. Radiation optimization: All CT scans at this facility use at least one of these dose optimization techniques: automated exposure control; mA and/or kV adjustment per patient size (includes targeted exams where dose is matched to clinical indication); or iterative reconstruction. COMPARISON: No relevant prior studies available. FINDINGS: Bones/joints: Mild levoconvex curvature. Vertebral body height and AP alignment is preserved. No acute cervical spine fracture. Mild degenerative change about the dens. Discs/Spinal canal/Neural foramina: No definite significant central canal stenosis within limitations of technique. Thyroid: Heterogeneous thyroid gland. Lungs: Lung apices are normal. Pleural spaces: No visible pneumothorax. Soft tissues: Unremarkable. IMPRESSION: No acute cervical spine fracture. Electronically signed by: Isaiah Chauhan On 12/31/2020 01:59:13 AM
--- NOTE | 2020-12-31 02:02 | REPVR ---
PROCEDURE INFORMATION: Exam: CT Head Without Contrast Exam date and time: 12/31/2020 1:22 AM Age: 40 years old Clinical indication: Syncope and collapse TECHNIQUE: Imaging protocol: Computed tomography of the head without contrast. Radiation optimization: All CT scans at this facility use at least one of these dose optimization techniques: automated exposure control; mA and/or kV adjustment per patient size (includes targeted exams where dose is matched to clinical indication); or iterative reconstruction. COMPARISON: No relevant prior studies available. FINDINGS: Brain: Normal. No hemorrhage. Unremarkable white matter. No mass effect. Cerebral ventricles: No ventriculomegaly. Paranasal sinuses: Visualized sinuses are unremarkable. No fluid levels. Mastoid air cells: Visualized mastoid air cells are well aerated. Bones/joints: Unremarkable. No acute fracture. Soft tissues: Unremarkable. IMPRESSION: No acute intracranial abnormality. Electronically signed by: Isaiah Chauhan On 12/31/2020 02:02:12 AM
[2020-12-31 05:12] VITALS: BP 117/71
--- NOTE | 2020-12-31 20:00 | ECGEPIP ---
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
== END 2020-12-31 06:41 | disposition home or self-care (01) ==
LOC: M ED 23:20
DX: F10.120 Alcohol abuse with intoxication, uncomplicated (principal); R42 Dizziness and giddiness; F41.9 Anxiety disorder, unspecified
CPT/HCPCS: 70450; 72125; 80048; 80076; 80143; 80307; 82077; 82550; 84702; 85025; 93005; 93041; 94760; 96361; 96374; 99285; J2405

== ENCOUNTER → 2021-07-18 | Outpatient (CLI) | payer BC ==
[~2021-07-18] MED LIST changes: +GASTROGRAFIN SOLUTION 30ML (Q9963) As Ordered ONE; +ISOVUE-370 76% 100ML VIAL As Ordered ONE; +KLON0.5T PO
== END ==
LOC: M RAD 12:37
PROVIDERS: ATTEND Nurse Practitioner Family
DX: R10.0 Acute abdomen (principal); M54.50 Low back pain, unspecified
CPT/HCPCS: 74177; Q9963; Q9967

== ENCOUNTER → 2021-08-01 | Outpatient (CLI) | payer BC ==
[~2021-08-01] MED LIST changes: -GASTROGRAFIN SOLUTION 30ML (Q9963) As Ordered ONE; -ISOVUE-370 76% 100ML VIAL As Ordered ONE
== END ==
LOC: M WHC 06:58
PROVIDERS: ATTEND Nurse Practitioner Family
DX: R10.30 Lower abdominal pain, unspecified (principal); Z87.440 Personal history of urinary (tract) infections

== ENCOUNTER 2022-04-25 19:43 | Emergency (ER) | payer BC ==
[~2022-04-25] VITALS: Ht 182.9 cm; Wt 81.0 kg
[2022-04-25 19:44] VITALS: BP 121/84
[2022-04-25] MEDS ORDERED: HYDR-4514 PO (19:51)
[2022-04-25] MEDS ORDERED: IBUP80TA PO (19:51)
[2022-04-25] MEDS ORDERED: ACET-683 PO (19:51)
[2022-04-25] MEDS ORDERED: LEXA1TAB2 PO (19:51)
[2022-04-25] MEDS ORDERED: KETOROLAC 30 MG/ML 1ML VIAL IV ONE (21:00)
[2022-04-25] MEDS ORDERED: diazePAM 10MG/2ML SYRINGE IV ONE (21:00)
[2022-04-25 21:45] LABS: BASO # 0.1 10^3/uL (0.0-0.2); BASO % 0.6 % (0.0-1.0); EOS # 0.2 10^3/uL (0.0-0.5); EOS % 2.6 % (0.0-3.0); HEMATOCRIT 35.8 % (36.0-47.0); HEMOGLOBIN 11.8 g/dl (12.0-15.5); LYMPH # 0.9 10^3/uL (1.5-5.0); LYMPH % 11.5 % (24.0-44.0); MEAN CORPUSCULAR HEMOGLOBIN 28.7 pg (27.0-33.0); MEAN CORPUSCULAR VOLUME 87.1 fl (80.0-96.0); MONO # 0.7 10^3/uL (0.0-0.8); MONO % 9.2 % (2.0-8.0); NEUTROPHILS # 5.9 10^3/uL (1.5-8.5); NEUTROPHILS % 75.5 % (36.0-66.0); PLATELET COUNT, AUTOMATED 254 10^3/uL (150-450); RED BLOOD COUNT 4.11 10^6/uL (4.00-5.40); WHITE BLOOD COUNT 7.8 10^3/uL (4.0-10.0)
[2022-04-25] MEDS ORDERED: ISOVUE-370 76% 100ML VIAL As Ordered ONE (22:00)
[2022-04-25 22:18] LABS: CK-MB VALUE MASS < 1.0 NG/ML (<3.6)
[2022-04-25 22:20] LABS: CPK CREATINE PHOSPHOKINASE 31 U/L (34-145); MB/CK RELATIVE INDEX 3.22 (< OR =4)
== END 2022-04-25 23:51 | disposition home or self-care (01) ==
LOC: M ED 19:43
DX: R07.9 Chest pain, unspecified (principal); M54.6 Pain in thoracic spine; R93.89 Abnormal findings on diagnostic imaging of other specified body structures; R59.0 Localized enlarged lymph nodes; Z98.82 Breast implant status; Z79.899 Other long term (current) drug therapy
CPT/HCPCS: 71275; 80047; 82550; 82553; 83605; 84484; 84702; 85025; 93005; 96374; 96375; 99284; J1885; J3360

== ENCOUNTER → 2022-06-12 | Outpatient (REF) | payer BC ==
[~2022-06-12] MED LIST changes: +ACET-683 PO; +ADDE20CA3 PO; +HYDR-4514 PO; +IBUP80TA PO; +KEYT1INJ IV; +LEXA1TAB2 PO
[2022-06-12 17:30] LABS: LDH LACTATE DEHYDROGENASE 162 U/L (120-246)
[2022-06-12 17:33] LABS: C REACTIVE PROTEIN QUANTITATIV < 0.40 MG/DL (<1.0)
[2022-06-12 17:35] LABS: RHEUMATOID FACTOR QUANT 6.4 IU/ML (<14)
[2022-06-12 18:20] LABS: ERYTHROCYTE SEDIMENTATION RATE 33 mm/hr (0-20)
[2022-06-12 18:22] LABS: BASO # 0.1 10^3/uL (0.0-0.2); BASO % 1.2 % (0.0-1.0); EOS % 0.8 % (0.0-3.0); HEMATOCRIT 41.8 % (36.0-47.0); HEMOGLOBIN 13.6 g/dl (12.0-15.5); LYMPH # 0.9 10^3/uL (1.5-5.0); LYMPH % 19.3 % (24.0-44.0); MEAN CORPUSCULAR HGB CONC 32.5 g/dl (32.0-36.5); MEAN CORPUSCULAR VOLUME 86.2 fl (80.0-96.0); MONO # 0.6 10^3/uL (0.0-0.8); MONO % 11.7 % (2.0-8.0); NEUTROPHILS # 3.3 10^3/uL (1.5-8.5); NEUTROPHILS % 66.8 % (36.0-66.0); PLATELET COUNT, AUTOMATED 290 10^3/uL (150-450); RED BLOOD COUNT 4.85 10^6/uL (4.00-5.40); WHITE BLOOD COUNT 4.9 10^3/uL (4.0-10.0)
== END ==
LOC: M LAB REF 16:17
PROVIDERS: ATTEND Pediatrics
DX: R59.0 Localized enlarged lymph nodes (principal)

== ENCOUNTER 2022-06-13 07:34 | Day surgery (SDC) | payer BC ==
[~2022-06-13] VITALS: Ht 182.9 cm; Wt 78.4 kg
[2022-06-13] MEDS ORDERED: LR 1,000 ML IV SCH ×2 (07:55→10:35)
[2022-06-13] MEDS ORDERED: CETACAINE SPRAY 5GM As Ordered ONE (09:40)
[2022-06-13] MEDS ORDERED: EPINEPHrine 1MG/10ML SYRINGE 1.5IN As Ordered ONE (09:40)
[2022-06-13] MEDS ORDERED: MIDAZOLAM INJ 2MG/2ML VIAL As Ordered ONE (09:42)
[2022-06-13] MEDS ORDERED: fentaNYL 100 MCG/2 ML INJECTION As Ordered ONE (09:42)
[2022-06-13] MEDS ORDERED: ROCURONIUM BROMIDE 50MG/5ML VIAL As Ordered ONE (09:43)
[2022-06-13] MEDS ORDERED: KETOROLAC 60MG 2ML VIAL As Ordered ONE (09:43)
[2022-06-13] MEDS ORDERED: propofoL 200 MG/20 ML VIAL As Ordered ONE (09:43)
[2022-06-13] MEDS ORDERED: ACETAMINOPHEN 1000MG 100ML IV BAG As Ordered ONE (09:43)
[2022-06-13] MEDS ORDERED: SUGAMMADEX SODIUM 500 MG/5 ML VIAL (BRIDION) As Ordered ONE (09:43)
[2022-06-13] MEDS ORDERED: LIDOCAINE 2% 100MG/5ML SDV (FOR ANES.) As Ordered ONE (09:43)
[2022-06-13] MEDS ORDERED: ONDANSETRON 4MG 2ML VIAL As Ordered ONE (09:44)
[2022-06-13] MEDS ORDERED: GLYCOPYRROLATE INJ 0.2 MG/ML 2 ML VIAL As Ordered ONE (10:18)
[2022-06-13] MEDS ORDERED: HYDROMORPHONE HCL 0.5 MG/ 0.5 ML SYRINGE IV PRN (10:35)
[2022-06-13] MEDS ORDERED: fentaNYL 100 MCG/2 ML INJECTION IV PRN (10:35)
[2022-06-13] MEDS ORDERED: oxyCODONE 5MG TAB PO PRN (10:35)
[2022-06-13] MEDS ORDERED: ONDANSETRON 4MG 2ML VIAL IV PRN (10:35)
[2022-06-13 11:20] VITALS: BP 123/79
== END 2022-06-13 11:44 | disposition home or self-care (01) ==
LOC: M SDC 07:34
PROVIDERS: ATTEND Internal Medicine Critical Care Medicine
DX: R59.0 Localized enlarged lymph nodes (principal); F41.9 Anxiety disorder, unspecified; F32.A Depression, unspecified; G43.909 Migraine, unspecified, not intractable, without status migrainosus; Z79.899 Other long term (current) drug therapy
CPT/HCPCS: 31622; 31654; 71045; 81025; 88173; 88305; J0131; J0171; J1100; J1885; J2250; J2405; J3010

== ENCOUNTER → 2022-06-25 | Outpatient (CLI) | payer BC ==
[2022-06-25 13:14] LABS: ALBUMIN 3.9 G/DL (3.2-5.2); ALKALINE PHOSPHATASE 82 U/L (46-116); ALT/SGPT < 9 U/L (7.0-40); AST/SGOT 10 U/L (<34); BILIRUBIN,TOTAL 0.4 MG/DL (0.3-1.2); BLOOD UREA NITROGEN 16 MG/DL (9-23); CALCIUM LEVEL 9.3 MG/DL (8.5-10.1); CARBON DIOXIDE LEVEL 27 MMOL/L (20-31); CHLORIDE LEVEL 105 MMOL/L (98-107); CREATININE FOR GFR 0.88 MG/DL (0.55-1.30); GLOMERULAR FILTRATION RATE > 60.0 (>60); GLUCOSE, FASTING 87 MG/DL (60-100); POTASSIUM SERUM 3.6 MMOL/L (3.5-5.1); SODIUM LEVEL 139 MMOL/L (136-145); TOTAL PROTEIN 7.5 G/DL (5.7-8.2)
== END ==
LOC: M LAB 11:46
PROVIDERS: ATTEND Internal Medicine Critical Care Medicine
DX: D86.1 Sarcoidosis of lymph nodes (principal)

== ENCOUNTER → 2022-09-25 | Outpatient (CLI) | payer BC | LOC: M RAD 07:07 | PROVIDERS: ATTEND Internal Medicine Critical Care Medicine | DX: R91.8 Other nonspecific abnormal finding of lung field (principal); R59.1 Generalized enlarged lymph nodes ==

== ENCOUNTER → 2022-10-17 | Outpatient (REF) | payer BC | LOC: M LAB REF 16:57 | PROVIDERS: ATTEND Physician Assistant | DX: B37.0 Candidal stomatitis (principal) ==